=== PATIENT | male | born 1950 | race Caucasian/White ===

== ENCOUNTER 2022-06-23 08:00 | Inpatient (IN) | payer MEDICARE, OTHER ==
[~2022-06-23] VITALS: Ht 170.2 cm; Wt 83.6 kg
[~2022-06-23 08:00] MED LIST: NICARDIPINE 100MCG/ML 10ML VIAL (CATH LAB) IV ONE; NITROGLYCERIN 50MCG/ML 10ML VIAL (CATH LAB) IV ONE
[2022-06-23] MEDS ORDERED: ASPIRIN/SOD BICARB/CITRIC ACID 324MG TAB EFF ONE (08:35)
[2022-06-23] MEDS ORDERED: CLOP-31 PO (09:04)
[2022-06-23] MEDS ORDERED: ASPI-1406 PO (09:04)
[2022-06-23] MEDS ORDERED: METF-416 PO (09:04)
[2022-06-23] MEDS ORDERED: INSU100V40 (09:04)
[2022-06-23] MEDS ORDERED: GLIP5TAB12 PO (09:04)
[2022-06-23] MEDS ORDERED: SIMV-43 PO (09:04)
[2022-06-23] MEDS ORDERED: LISI20TA31 PO (09:04)
[2022-06-23] MEDS ORDERED: IODIXANOL 320MG/ML 100 ML BOTTLE IV ONE (09:16)
[2022-06-23] MEDS ORDERED: HEPARIN 1000 UNITS/ML 10ML ONE (09:16)
[2022-06-23] MEDS ORDERED: LIDOCAINE HCL/PF 1% 10 MG/ML 5ML VIAL ONE (09:16)
[2022-06-23] MEDS ORDERED: FENTANYL CITRATE/PF 50MCG/ML 2ML VIAL ONE (09:52)
[2022-06-23] MEDS ORDERED: MIDAZOLAM HCL 2 MG/2 ML VIAL ONE (09:52)
[2022-06-23] MEDS ORDERED: CLOPIDOGREL 75MG TABLET ONE (10:47)
[2022-06-23 10:57] LABS: BASOPHILS % 0.8 % (0.0-2.0); EOSINOPHILS % 4.1 % (0.0-5.0); HEMATOCRIT. 31.9 % (42.0-52.0); HEMOGLOBIN. 10.9 g/dL (14.0-18.0); LYMPHOCYTES % 19.3 % (20.0-50.0); MEAN CORPUSCULAR HEMOGLOBIN 28.6 pg (28.0-32.0); MEAN CORPUSCULAR VOLUME 83.9 fL (80.0-94.0); MEAN PLATELET VOLUME 8.2 fl (7.4-10.4); MONOCYTES % 9.2 % (2.0-8.0); NEUTROPHILS % 66.6 % (40.0-76.0); PLATELET 72 x1000/uL (130-400); RED BLOOD CELL COUNT 3.81 mill/uL (4.7-6.1); RED CELL DISTRIBUTION WIDTH 13.4 % (11.6-14.6)
[2022-06-23] MEDS ORDERED: SODIUM CHLORIDE 0.45% 1,000 ML IV ONE (11:00)
[2022-06-23] MEDS ORDERED: DEXTROSE 50% WATER 50ML SYRINGE IV PRN (11:00)
[2022-06-23] MEDS ORDERED: MORPHINE SULFATE 2 MG/ML CPJ (NOT FOR IM USE) IV PRN (11:00)
[2022-06-23] MEDS ORDERED: ATROPINE SULFATE 1MG/10ML SYR IV PRN (11:00)
[2022-06-23] MEDS ORDERED: ONDANSETRON HCL 4MG/2ML INJ IV PRN (11:00)
[2022-06-23] MEDS ORDERED: CLOPIDOGREL 75MG TABLET PO ONE (11:00)
[2022-06-23] MEDS ORDERED: ACETAMINOPHEN 325MG TABLET PO PRN (11:00)
[2022-06-23] MEDS ORDERED: NALOXONE HCL 0.4MG/ML VIAL IV PRN (11:30)
[2022-06-23 11:49] VITALS: BP 122/82
[2022-06-23] MEDS: BLOOD SUGAR DIAGNOSTIC STRIP TEST SCH ×3 (11:50→21:04)
[2022-06-23 12:00] VITALS: BP 136/78
[2022-06-23] MEDS: INSULIN LISPRO 100 UNITS/ML SUBCUT SCH ×3 (12:20→21:09)
[2022-06-23] MEDS: LISINOPRIL 20MG TABLET PO SCH ×2 (12:58→21:08)
[2022-06-23 16:00] VITALS: BP 130/79
[2022-06-23 17:12] LABS: HEMATOCRIT 32.6 % (42.0-52.0); HEMOGLOBIN 11.2 g/dL (14.0-18.0); MEAN CORPUSCULAR HEMOGLOBIN 28.7 pg (28.0-32.0); MEAN CORPUSCULAR VOLUME 83.9 fL (80.0-94.0); PLATELET 80 x1000/uL (130-400); RED BLOOD CELL COUNT 3.89 mill/uL (4.7-6.1); RED CELL DISTRIBUTION WIDTH 13.6 % (11.6-14.6)
[2022-06-23 17:56] LABS: HEPATITIS B SURFACE ANTIGEN NEGATIVE
[2022-06-23 20:00] VITALS: BP 118/72
[2022-06-23] MEDS ORDERED: ATORVASTATIN CALCIUM 20MG TABLET PO SCH (21:00)
[2022-06-24] VITALS: BP 119/69
[2022-06-24 04:00] VITALS: BP 125/61
[2022-06-24] MEDS: BLOOD SUGAR DIAGNOSTIC STRIP TEST SCH (06:40)
[2022-06-24 07:10] LABS: BASOPHILS % 0.9 % (0.0-2.0); EOSINOPHILS % 3.2 % (0.0-5.0); HEMATOCRIT. 35.5 % (42.0-52.0); HEMOGLOBIN. 12.2 g/dL (14.0-18.0); LYMPHOCYTES % 18.4 % (20.0-50.0); MEAN CORPUSCULAR HEMOGLOBIN 29.1 pg (28.0-32.0); MEAN CORPUSCULAR VOLUME 84.7 fL (80.0-94.0); MEAN PLATELET VOLUME 8.5 fl (7.4-10.4); MONOCYTES % 9.4 % (2.0-8.0); NEUTROPHILS % 68.1 % (40.0-76.0); PLATELET 87 x1000/uL (130-400); RED BLOOD CELL COUNT 4.19 mill/uL (4.7-6.1); RED CELL DISTRIBUTION WIDTH 13.9 % (11.6-14.6)
[2022-06-24 08:00] VITALS: BP 137/79
[2022-06-24] MEDS: LISINOPRIL 20MG TABLET PO SCH (08:45)
[2022-06-24] MEDS: INSULIN LISPRO 100 UNITS/ML SUBCUT SCH (08:46)
[2022-06-24] MEDS ORDERED: CLOPIDOGREL 75MG TABLET PO SCH (09:00)
[2022-06-24] MEDS ORDERED: ASPIRIN 81MG TABLET PO SCH (09:00)
[2022-06-24 10:07] VITALS: BP 137/79
== END 2022-06-24 12:20 | disposition home health service (06) | DRG 247 ==
LOC: CCL 08:00 → 3WST 10:58
PROVIDERS: ADMIT Specialist; ATTEND Specialist
PROC: 027034Z Dilation of Coronary Artery, One Artery with Drug-eluting Intraluminal Device, Percutaneous Approach (ICD-10-PCS; principal; 2022-06-23)
PROC: 4A023N7 Measurement of Cardiac Sampling and Pressure, Left Heart, Percutaneous Approach (ICD-10-PCS; 2022-06-23)
PROC: B2111ZZ Fluoroscopy of Multiple Coronary Arteries using Low Osmolar Contrast (ICD-10-PCS; 2022-06-23)
DX: I25.10 Atherosclerotic heart disease of native coronary artery without angina pectoris (principal); E78.5 Hyperlipidemia, unspecified; I10 Essential (primary) hypertension; E11.9 Type 2 diabetes mellitus without complications; Z79.82 Long term (current) use of aspirin; Z79.84 Long term (current) use of oral hypoglycemic drugs; Z79.02 Long term (current) use of antithrombotics/antiplatelets; Z79.899 Other long term (current) drug therapy
CPT/HCPCS: 36415; 80048; 82962; 83036; 83735; 85025; 85027; 85347; 86803; 87340; 92928; 93005; 93458; C1769; C1874; C1887; C1893; J1644; J1815; J2250; J3010; J3490; Q9967